=== PATIENT | male | born 1995 | race Hispanic/Latino ===

== ENCOUNTER 2017-08-18 12:36 | Emergency (ER) | payer OTHER, SELFPAY ==
--- NOTE | 2017-08-18 15:31 | ER ---
Nurse's Notes [facility] Name: Hayes Tellez Age: 22 yrs Sex: Male : 1995 Arrival Date: 08/18/2017 Time: 12:48 Bed 9 Private MD: Diagnosis: Cellulitis of right lower limb Presentation: 08/18 12:49 Presenting complaint: Patient states: "I hurt my leg Ramirze at work on a metal frame, I aa5 was just walking and didn't see it". Pt c/o pain to right crespo, red bruising noted to right crespo. Transition of care: patient was not received from another setting of care. Onset of symptoms was August 15, 2017. Risk Assessment: Do you want to hurt yourself or someone else? Patient reports no desire to harm self or others. Initial Sepsis Screen: Does the patient meet any 2 criteria? No. Patient's initial sepsis screen is negative. Does the patient have a suspected source of infection? No. Patient's initial sepsis screen is negative. Care prior to arrival: None. 12:49 Method Of Arrival: Ambulatory aa5 12:49 Acuity: PATTI 4 aa5 Historical: - Allergies: 12:51 No Known Allergies; aa5 - PMHx: 12:51 None; aa5 - PSHx: 12:51 abd sx as a child; aa5 - Immunization history:: Adult Immunizations up to date. - Social history:: Smoking status: Patient/guardian denies using tobacco. - Ebola Screening: : No symptoms or risks identified at this time. Screenin:25 Abuse screen: Denies threats or abuse. Denies injuries from another. Nutritional aj1 screening: No deficits noted. Tuberculosis screening: No symptoms or risk factors identified. Fall Risk None identified. Assessment: 15:25 General: Appears in no apparent distress. comfortable, Behavior is calm, cooperative, aj1 appropriate for age. Pain: Denies pain. Neuro: Level of Consciousness is awake, alert, obeys commands. Cardiovascular: Patient's skin is warm and dry. Respiratory: Airway is patent Respiratory effort is even, unlabored, Respiratory pattern is regular, symmetrical. GI: No signs and/or symptoms were reported involving the gastrointestinal system. : No signs and/or symptoms were reported regarding the genitourinary system. EENT: No signs and/or symptoms were reported regarding the EENT system. Derm: Bruising that is on right crespo. Musculoskeletal: Circulation, motion, and sensation intact. Range of motion: intact in all extremities, Swelling present in right crespo. 16:38 Reassessment: Patient appears in no apparent distress at this time. No changes from aj1 previously documented assessment. Patient and/or family updated on plan of care and expected duration. Pain level reassessed. Patient is alert, oriented x 3, equal unlabored respirations, skin warm/dry/pink. Vital Signs: 12:51 BP 129 / 80; Pulse 76; Resp 18 S; Temp 97.5(TE); Pulse Ox 97% on R/A; Weight 131.54 kg aa5 (R); Height 6 ft. 2 in. (187.96 cm) (R); Pain 0/10; 12:51 Body Mass Index 37.23 (131.54 kg, 187.96 cm) aa5 ED Course: 12:48 Patient arrived in ED. aa5 12:50 Triage completed. aa5 12:50 Arm band placed on. aa5 13:55 Alyssa Kennedy F[facility]-C [facility]. snw 13:55 Srinivas Tyler MD is Attending Physician. snw 14:44 Charlene Small, RN is Primary Nurse. iw 15:25 Patient has correct armband on for positive identification. Call light in reach. aj1 15:25 No provider procedures requiring assistance completed. Patient did not have IV access aj1 during this emergency room visit. Administered Medications: 15:53 Drug: Tetanus-Diphtheria Toxoid Adult 0.5 ml {Director Of Broadcast: InHiro. Exp: aj1 10/17/2019. Lot #: [id number]. } Route: IM; Site: right deltoid; 16:38 Follow up: Response: No adverse reaction aj1 Outcome: 15:30 Discharge ordered by . snw 16:39 Discharged to home ambulatory. aj1 16:39 Condition: good 16:39 Discharge instructions given to patient, Instructed on discharge instructions, follow up and referral plans. medication usage, Demonstrated understanding of instructions, follow-up care, medications, Prescriptions given X 3. 16:39 Patient left the ED. aj1 Signatures: Gina Spears RN RN aj Alyssa Kennedy FNP-C WASTE WATER OPERATOR-CsnCharlene Saldana, RN RN iw Lucrecia Rosenthal, RN RN aa5
--- NOTE | 2017-08-18 15:31 | EDPHYS ---
Physician Documentation [facility] Name: Hayes Tellez Age: 22 yrs Sex: Male : 1995 Arrival Date: 08/18/2017 Time: 12:48 Bed 9 Private MD: ED Physician Srinivas Tyler HPI: 08/18 15:40 This 22 yrs old Male presents to ER via Ambulatory with complaints of Leg Pain.snw 15:40 The patient presents with an abrasion, a contusion, an injury, swelling, tenderness. snw The complaints affect the right crespo. Context: The problem was sustained at work, resulted from a direct blow, by industrial equipment, the patient is able to ambulate, Problem is a result from a previous injury: No. Onset: The symptoms/episode began/occurred suddenly, yesterday. Associated signs and symptoms: Pertinent positives: swelling. Severity of symptoms: At their worst the symptoms were moderate. The patient has not experienced similar symptoms in the past. Historical: - Allergies: 12:51 No Known Allergies; aa5 - PMHx: 12:51 None; aa5 - PSHx: 12:51 abd sx as a child; aa5 - Immunization history:: Adult Immunizations up to date. - Social history:: Smoking status: Patient/guardian denies using tobacco. - Ebola Screening: : No symptoms or risks identified at this time. ROS: 15:34 Constitutional: Negative for fever, chills, and weight loss, Eyes: Negative for injury, snw pain, redness, and discharge, ENT: Negative for injury, pain, and discharge, Neck: Negative for injury, pain, and swelling, Cardiovascular: Negative for chest pain, palpitations, and edema, Respiratory: Negative for shortness of breath, cough, wheezing, and pleuritic chest pain, Abdomen/GI: Negative for abdominal pain, nausea, vomiting, diarrhea, and constipation, Back: Negative for injury and pain, : Negative for injury, bleeding, discharge, and swelling, Skin: Positive for injury, rash, and discoloration, to right lower leg Neuro: Negative for headache, weakness, numbness, tingling, and seizure. 15:34 MS/extremity: Positive for injury or acute deformity, contusion, ecchymosis, pain, tenderness. Exam: 15:33 Constitutional: This is a well developed, well nourished patient who is awake, alert, snw and in no acute distress. Head/Face: Normocephalic, atraumatic. Eyes: Pupils equal round and reactive to light, extra-ocular motions intact. Lids and lashes normal. Conjunctiva and sclera are non-icteric and not injected. Cornea within normal limits. Periorbital areas with no swelling, redness, or edema. ENT: Nares patent. No nasal discharge, no septal abnormalities noted. Tympanic membranes are normal and external auditory canals are clear. Oropharynx with no redness, swelling, or masses, exudates, or evidence of obstruction, uvula midline. Mucous membranes moist. Neck: Trachea midline, no thyromegaly or masses palpated, and no cervical lymphadenopathy. Supple, full range of motion without nuchal rigidity, or vertebral point tenderness. No Meningismus. Chest/axilla: Normal chest wall appearance and motion. Nontender with no deformity. No lesions are appreciated. Cardiovascular: Regular rate and rhythm with a normal S1 and S2. No gallops, murmurs, or rubs. Normal PMI, no JVD. No pulse deficits. Respiratory: Lungs have equal breath sounds bilaterally, clear to auscultation and percussion. No rales, rhonchi or wheezes noted. No increased work of breathing, no retractions or nasal flaring. Abdomen/GI: Soft, non-tender, with normal bowel sounds. No distension or tympany. No guarding or rebound. No evidence of tenderness throughout. Back: No spinal tenderness. No costovertebral tenderness. Full range of motion. Neuro: Awake and alert, GCS 15, oriented to person, place, time, and situation. Cranial nerves II-XII grossly intact. Motor strength 5/5 in all extremities. Sensory grossly intact. Cerebellar exam normal. Normal gait. Psych: Awake, alert, with orientation to person, place and time. Behavior, mood, and affect are within normal limits. 15:33 Musculoskeletal/extremity: ROM: intact in all extremities, Circulation is intact in all extremities. Sensation intact. ecchymosis to right crespo, edema. Vital Signs: 12:51 BP 129 / 80; Pulse 76; Resp 18 S; Temp 97.5(TE); Pulse Ox 97% on R/A; Weight 131.54 kg aa5 (R); Height 6 ft. 2 in. (187.96 cm) (R); Pain 0/10; 12:51 Body Mass Index 37.23 (131.54 kg, 187.96 cm) aa5 MDM: 14:47 Patient medically screened. [facility] 15:36 Data reviewed: vital signs, nurses notes. Data interpreted: Pulse oximetry: on room air snw is 97 %. Interpretation: normal. Counseling: I had a detailed discussion with the patient and/or guardian regarding: the historical points, exam findings, and any diagnostic results supporting the discharge/admit diagnosis, the presence of at least one elevated blood pressure reading (>120/80) during this emergency department visit, the need for outpatient follow up, to return to the emergency department if symptoms worsen or persist or if there are any questions or concerns that arise at home. Special discussion: I have referred the patient to see his PCP for further evaluation of high blood pressure. I discussed in detail with the patient the higher chance of wound infection based on his presenting history. Based on the history and exam findings, there is no indication for further emergent testing or inpatient evaluation. I discussed with the patient/guardian the need to see the primary care provider for further evaluation of the symptoms. 15:37 Refusal of service: The patient/guardian displays adequate decision making capability snw and despite a detailed discussion of alternatives, benefits, risks, and consequences refuses: all X-rays. Administered Medications: 15:53 Drug: Tetanus-Diphtheria Toxoid Adult 0.5 ml {Delivery Representative: KAYAK. Exp: aj1 10/17/2019. Lot #: [id number]. } Route: IM; Site: right deltoid; 16:38 Follow up: Response: No adverse reaction aj1 Disposition: 08/19 08:15 Co-signature as Attending Physician, Srinivas Tyler MD I agree with the assessment and [facility] plan of care. Disposition: 08/18/17 15:30 Discharged to Home. Impression: Cellulitis of right lower limb. - Condition is Stable. - Discharge Instructions: Cellulitis, Hypertension, VIS, Tetanus, Diphtheria (Td) - CDC, Heat Therapy. - Prescriptions for Keflex 500 mg Oral Capsule - take 1 capsule by ORAL route every 8 hours for 10 days; 30 capsule. Tylenol- Codeine #3 300-30 mg Oral Tablet - take 2 tablet by ORAL route every 6 hours As needed; 6 tablet. Bactrim DS 800- 160 mg Oral Tablet - take 1 tablet by ORAL route every 12 hours for 10 days; 20 tablet. - Work release form, Medication Reconciliation Form, Thank You Letter, Antibiotic Education, Prescription Opioid Use form. - Follow up: Private Physician; When: 1 - 2 days; Reason: Recheck today's complaints, Continuance of care, Re-evaluation by your physician. Follow up: Emergency Department; When: As needed; Reason: Worsening of condition. Signatures: Gina Spears RN RN aj1 Srinivas Tyler MD MD cha Therrien, Shelly, FOOD AND BEVERAGE ASSOCIATE-C FOOD AND BEVERAGE ASSOCIATE-Csnw Lucrecia Rosenthal RN RN aa5 Corrections: (The following items were deleted from the chart) 08/18 16:39 15:30 08/18/2017 15:30 Discharged to Home. Impression: Cellulitis of right lower limb. aj1 Condition is Stable. Forms are Medication Reconciliation Form, Thank You Letter, Antibiotic Education, Prescription Opioid Use. Follow up: Private Physician; When: 1 - 2 days; Reason: Recheck today's complaints, Continuance of care, Re-evaluation by your physician. Follow up: Emergency Department; When: As needed; Reason: Worsening of condition. snw
[2017-08-18] MEDS ORDERED: TETANUS & DIPHTHERIA TOX,ADULT 0.5 ML VIAL ONE (15:56)
[2017-08-18 16:52] VITALS: BP 129/80; TEMP 97.5; O2SAT 97
== END 2017-08-18 16:39 | disposition home or self-care (01) ==
LOC: ER 12:36
DX: L03.115 Cellulitis of right lower limb (principal); Z23 Encounter for immunization
CPT/HCPCS: 90714; 99283

== ENCOUNTER 2018-03-29 03:31 | Emergency (ER) | payer SELFPAY ==
--- OUTSIDE RECORDS SUMMARY | 2018-03-29 03:33 | XMS REPORT ---
:1995 Author Organization [facility] Address [address] [place] [address] Dr. Gonzalez [address] [place] [id number] Care Team Providers Name Role Phone Unavailable Unavailable Unavailable Problems This patient has no known problems. Allergies, Adverse Reactions, Alerts This patient has no known allergies or adverse reactions. Medications This patient has no known medications. Encounters Start End Encounter Admission Attending Care Care Encounter Date/Time Date/Time Type Type Clinicians Facility Department ID 2017-04-15 2017-04-16 [facility] [id number] 00:00:00 00:00:00
[2018-03-29] MEDS ORDERED: LIDOCAINE 2% MPF 5 ML VIAL ONE (03:49)
[2018-03-29] MEDS ORDERED: NA CHLORIDE 0.9% 1,000 ML ONE ×2 (03:57→04:50)
[2018-03-29 04:08] LABS: Absolute Lymphocytes (CBC) 3.3 K/uL (0.7-4.9); Absolute Monocytes 0.8 K/uL (0.1-1.3); Absolute Neutrophil 5.2 K/uL (1.8-8.0); Basophils % 1.2 % (0-1.3); Eosinophils % 2.6 % (0-4.4); MPV 9.6 fL (7.6-11.3); Monocytes % 8.1 % (3.3-12.3)
[2018-03-29] MEDS ORDERED: CEFAZOLIN 2GM (PREMIX IV) 2 GM/50 ML BAG ONE (04:14)
[2018-03-29 04:22] LABS: BUN Blood Urea Nitrogen 7 mg/dL (7-18); Bicarbonate 25 mmol/L (21-32); Glucose Level 136 mg/dL (74-106); Potassium 3.5 mmol/L (3.5-5.1); Sodium Level 140 mmol/L (136-145)
[2018-03-29] MEDS ORDERED: MORPHINE 4 MG/ML SYR ONE (04:22)
[2018-03-29] MEDS ORDERED: ONDANSETRON 4 MG/2 ML VIAL ONE (04:22)
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
[2018-03-29 07:12] VITALS: TEMP 97.3; O2SAT 97
[2018-03-29 07:16] VITALS: BP 108/76
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
== END 2018-03-29 07:07 | disposition short-term general hospital (02) ==
LOC: ER 03:31
PROC: 0JQ10ZZ Repair Face Subcutaneous Tissue and Fascia, Open Approach (ICD-10-PCS; principal; 2018-03-29)
PROC: 0CQ1XZZ Repair Lower Lip, External Approach (ICD-10-PCS; 2018-03-29)
DX: S01.511A Laceration without foreign body of lip, initial encounter (principal); S01.111A Laceration without foreign body of right eyelid and periocular area, initial encounter; S01.81XA Laceration without foreign body of other part of head, initial encounter; Y04.2XXA Assault by strike against or bumped into by another person, initial encounter; Y93.89 Activity, other specified; Y92.9 Unspecified place or not applicable; Z72.0 Tobacco use
CPT/HCPCS: 36415; 70450; 70486; 76377; 80048; 85025; 86850; 86900; 86901; 96361; 96365; 96375; 99285; J0690; J2405; J7030

== ENCOUNTER 2018-04-12 16:08 | Emergency (ER) | payer SELFPAY ==
--- OUTSIDE RECORDS SUMMARY | 2018-04-12 16:10 | XMS REPORT ---
:1995 [facility] Address [address] [place] [address] Dr. Gonzalez [address] [place] [id number] Care Team Providers Name Role Phone Unavailable Unavailable Unavailable Problems This patient has no known problems. Allergies, Adverse Reactions, Alerts This patient has no known allergies or adverse reactions. Medications This patient has no known medications. Encounters Start End Encounter Admission Attending Care Care Encounter Date/Time Date/Time Type Type Clinicians Facility Department ID 2017-04-15 2017-04-16 [facility] [id number] 00:00:00 00:00:00
--- NOTE | 2018-04-12 16:43 | ER ---
Nurse's Notes [facility] Name: Hayes Tellez Age: 23 yrs Sex: Male : 1995 Arrival Date: 04/12/2018 Time: 16:10 Bed 23 Private MD: Diagnosis: Encounter for removal of sutures Presentation: 04/12 16:16 Presenting complaint: Patient states: I got stitches 1.5 weeks ago and I need them out. la1 Transition of care: patient was not received from another setting of care. Onset of symptoms was April 12, 2018. Risk Assessment: Do you want to hurt yourself or someone else? Patient reports no desire to harm self or others. Initial Sepsis Screen: Does the patient meet any 2 criteria? No. Patient's initial sepsis screen is negative. Does the patient have a suspected source of infection? No. Patient's initial sepsis screen is negative. Care prior to arrival: None. 16:16 Method Of Arrival: Ambulatory la1 16:16 Acuity: PATTI 5 la1 Historical: - Allergies: 16:17 No Known Allergies; la1 - PMHx: 16:17 None; la1 - Immunization history:: Adult Immunizations up to date. - Social history:: Smoking status: Patient/guardian denies using tobacco. - Ebola Screening: : No symptoms or risks identified at this time. Screenin:20 Abuse screen: Denies threats or abuse. Denies injuries from another. Nutritional aj1 screening: No deficits noted. Tuberculosis screening: No symptoms or risk factors identified. Fall Risk None identified. Assessment: 16:20 General: Appears in no apparent distress. comfortable, Behavior is calm, cooperative, aj1 appropriate for age. Pain: Denies pain. Neuro: Level of Consciousness is awake, alert, obeys commands. Cardiovascular: Patient's skin is warm and dry. Respiratory: Airway is patent Respiratory effort is even, unlabored, Respiratory pattern is regular, symmetrical. GI: No signs and/or symptoms were reported involving the gastrointestinal system. : No signs and/or symptoms were reported regarding the genitourinary system. EENT: No signs and/or symptoms were reported regarding the EENT system. Derm: Skin is pink, warm \T\ dry. normal. Musculoskeletal: Circulation, motion, and sensation intact. Vital Signs: 16:17 BP 140 / 83; Pulse 77; Resp 18; Temp 97.1; Pulse Ox 98% on R/A; la1 ED Course: 16:10 Patient arrived in ED. as 16:11 Yessy Mcdonald FNP-C is [facility]. kb 16:11 Javan Hunter MD is Attending Physician. kb 16:16 Triage completed. la1 16:17 Arm band placed on right wrist. la1 16:18 Gina Spears, RN is Primary Nurse. aj1 16:20 Patient has correct armband on for positive identification. Bed in low position. Call aj1 light in reach. 16:20 No provider procedures requiring assistance completed. Patient did not have IV access aj1 during this emergency room visit. Administered Medications: No medications were administered Outcome: 16:43 Discharge ordered by . kb 16:52 Discharged to home ambulatory. aj1 16:52 Condition: good 16:52 Discharge instructions given to no one, patient left prior to receiving discharge papers 16:52 Patient left the ED. aj1 Signatures: Yessy Mcdonald FNP-C MANAGER OF MANUFACTURING-Ckb Gina Spears, RN RN aj1 Katya Aguilar Lee, RN RN la1
--- NOTE | 2018-04-12 16:43 | EDPHYS ---
Physician Documentation [facility] Name: Hayes Tellez Age: 23 yrs Sex: Male : 1995 Arrival Date: 04/12/2018 Time: 16:10 Bed 23 Private MD: ED Physician Javan Hunter HPI: 04/12 16:41 This 23 yrs old Male presents to ER via Ambulatory with complaints of Suture kb Removal. 16:41 The patient has sutures on the lower lip and chin. Previous treatment: The patient was kb initially treated 14 day(s) ago, the care was rendered at [facility], Treatment type: The patient's original treatment included sutures. Sutures/venessa progress: The patient has no c/o's. The wound is well-healing with no redness, swelling, discharge, or dehiscence reported. The patient has not experienced similar symptoms in the past. The patient has been recently seen at the [facility] Emergency Department, a couple of weeks ago. Historical: - Allergies: 16:17 No Known Allergies; la1 - PMHx: 16:17 None; la1 - Immunization history:: Adult Immunizations up to date. - Social history:: Smoking status: Patient/guardian denies using tobacco. - Ebola Screening: : No symptoms or risks identified at this time. ROS: 16:39 Constitutional: Negative for fever, chills, and weight loss, Cardiovascular: Negative kb for chest pain, palpitations, and edema, Respiratory: Negative for shortness of breath, cough, wheezing, and pleuritic chest pain, Abdomen/GI: Negative for abdominal pain, nausea, vomiting, diarrhea, and constipation, Back: Negative for injury and pain, MS/Extremity: Negative for injury and deformity, Neuro: Negative for headache, weakness, numbness, tingling, and seizure. 16:39 Skin: Positive for of the lower lip and chin, sutures in place. Exam: 16:39 Constitutional: This is a well developed, well nourished patient who is awake, alert, kb and in no acute distress. Head/Face: Normocephalic, atraumatic. Chest/axilla: Normal chest wall appearance and motion. Nontender with no deformity. No lesions are appreciated. Cardiovascular: Regular rate and rhythm with a normal S1 and S2. No gallops, murmurs, or rubs. Normal PMI, no JVD. No pulse deficits. Respiratory: Lungs have equal breath sounds bilaterally, clear to auscultation and percussion. No rales, rhonchi or wheezes noted. No increased work of breathing, no retractions or nasal flaring. Abdomen/GI: Soft, non-tender, with normal bowel sounds. No distension or tympany. No guarding or rebound. No evidence of tenderness throughout. Back: No spinal tenderness. No costovertebral tenderness. Full range of motion. MS/ Extremity: Pulses equal, no cyanosis. Neurovascular intact. Full, normal range of motion. Neuro: Awake and alert, GCS 15, oriented to person, place, time, and situation. Cranial nerves II-XII grossly intact. Motor strength 5/5 in all extremities. Sensory grossly intact. Cerebellar exam normal. Normal gait. 16:39 Skin: Wound recheck: Suture laceration closure: the wound is healing well, the edges are well approximated, no evidence of dehiscence, no drainage, no erythema, no swelling. Vital Signs: 16:17 BP 140 / 83; Pulse 77; Resp 18; Temp 97.1; Pulse Ox 98% on R/A; la1 Procedures: 16:40 Suture/Staple removal: Removed 26 sutures, from lower lip and chin, site appears well kb healed, Patient tolerated well. MDM: 16:18 Patient medically screened. kb 16:38 Data reviewed: vital signs, nurses notes. Data interpreted: Pulse oximetry: on room air kb is 98 %. Interpretation: normal. Counseling: I had a detailed discussion with the patient and/or guardian regarding: the historical points, exam findings, and any diagnostic results supporting the discharge/admit diagnosis, the need for outpatient follow up, a family practitioner, to return to the emergency department if symptoms worsen or persist or if there are any questions or concerns that arise at home. Administered Medications: No medications were administered Disposition: 17:44 Co-signature as Attending Physician, Javan Hunter MD. rn Disposition: 04/12/18 16:43 Discharged to Home. Impression: Encounter for removal of sutures. - Condition is Stable. - Discharge Instructions: Suture Removal, Care After. - Medication Reconciliation Form, Thank You Letter, Antibiotic Education, Prescription Opioid Use form. - Follow up: Emergency Department; When: As needed; Reason: Worsening of condition. Follow up: Private Physician; When: 2 - 3 days; Reason: Recheck today's complaints, Continuance of care, Re-evaluation by your physician. Signatures: Yessy Mcdonald FNP-C FNP-Gina Epps RN RN aj1 Javan Hunter MD MD rn Attema, Lee, RN RN la1 Corrections: (The following items were deleted from the chart) 16:52 16:43 04/12/2018 16:43 Discharged to Home. Impression: Encounter for removal of aj1 sutures. Condition is Stable. Forms are Medication Reconciliation Form, Thank You Letter, Antibiotic Education, Prescription Opioid Use. Follow up: Emergency Department; When: As needed; Reason: Worsening of condition. Follow up: Private Physician; When: 2 - 3 days; Reason: Recheck today's complaints, Continuance of care, Re-evaluation by your physician. kb
[2018-04-12 17:01] VITALS: BP 140/83; TEMP 97.1; O2SAT 98
== END 2018-04-12 16:52 | disposition home or self-care (01) ==
LOC: ER 16:08
DX: Z48.02 Encounter for removal of sutures (principal)
CPT/HCPCS: 99281

== ENCOUNTER 2018-10-30 15:54 | Emergency (ER) | payer SELFPAY ==
--- OUTSIDE RECORDS SUMMARY | 2018-10-30 15:56 | XMS REPORT ---
:1995 [facility] Address [address] [place] [address] Dr. Gonzalez [address] [place] [id number] Care Team Providers Name Role Phone Unavailable Unavailable Unavailable Problems This patient has no known problems. Allergies, Adverse Reactions, Alerts This patient has no known allergies or adverse reactions. Medications This patient has no known medications. Encounters Start End Encounter Admission Attending Care Care Encounter Date/Time Date/Time Type Type Clinicians Facility Department ID 2017-04-15 2017-04-16 [facility] [id number] 00:00:00 00:00:00
[2018-10-30] MEDS ORDERED: IBUPROFEN 400 MG TAB ONE (16:25)
[2018-10-30] MEDS ORDERED: MAGNE/ALUM HYDROXD 30 ML UCUP ONE (16:25)
[2018-10-30] MEDS ORDERED: dexAMETHasone 10 MG/ML VIAL ONE (16:25)
[2018-10-30] MEDS ORDERED: LIDOCAINE VISCOUS 2% SOLN 15 ML UDC ONE (16:25)
[2018-10-30] MEDS ORDERED: NA CHLORIDE 0.9% 1,000 ML ONE (16:25)
--- NOTE | 2018-10-30 17:26 | ER ---
Nurse's Notes [facility] Name: Hayes Tellez Age: 23 yrs Sex: Male : 1995 Arrival Date: 10/30/2018 Time: 15:55 Bed 15 Private MD: Diagnosis: Acute tonsillitis Presentation: 10/30 15:59 Presenting complaint: Patient states: Sore throat since Friday, Looked in the mirror la1 and saw a bunch of white stuff. Transition of care: patient was not received from another setting of care. Onset of symptoms was October 30, 2018. Risk Assessment: Do you want to hurt yourself or someone else? Patient reports no desire to harm self or others. Initial Sepsis Screen: Does the patient meet any 2 criteria? Temp <36.0*C (96.8*F)) or > 38.3*C (100.9*F). HR > 90 bpm. Yes Does the patient have a suspected source of infection? Yes: Other: Throat If YES to both, name of provider notified: Javan Hunter MD. Care prior to arrival: None. 15:59 Method Of Arrival: Ambulatory la1 15:59 Acuity: PATTI 3 la1 Historical: - Allergies: 15:59 No Known Allergies; la1 - PMHx: 15:59 None; la1 - PSHx: 15:59 eye sx; la1 - Immunization history:: Adult Immunizations up to date. - Social history:: Smoking status: Patient/guardian denies using tobacco. - Ebola Screening: : No symptoms or risks identified at this time. Screenin:05 Abuse screen: Denies threats or abuse. Denies injuries from another. Nutritional rv screening: No deficits noted. Tuberculosis screening: No symptoms or risk factors identified. Fall Risk None identified. Assessment: 16:30 General: Appears in no apparent distress. comfortable, Behavior is calm, cooperative. rv 16:30 Pain: Complains of pain in throat. Neuro: Level of Consciousness is awake, alert, obeys rv commands, Oriented to person, place, time, situation. Cardiovascular: Patient's skin is warm and dry. Respiratory: Airway is patent Respiratory effort is even, Breath sounds are clear bilaterally. GI: No signs and/or symptoms were reported involving the gastrointestinal system. GI: No signs and/or symptoms were reported involving the gastrointestinal system. : No signs and/or symptoms were reported regarding the genitourinary system. EENT: Throat is reddened has patchy exudate has enlarged tonsils bilaterally. Derm: Skin is intact. Musculoskeletal: No signs and/or symptoms reported regarding the musculoskeletal system. Vital Signs: 15:58 BP 147 / 102; Pulse 133; Resp 16; Temp 101.9; Pulse Ox 100% on R/A; Weight 133.81 kg; la1 17:05 BP 126 / 74; Pulse 106; Resp 16; Pulse Ox 96% on R/A; rv 18:11 BP 128 / 76; Pulse 95; Resp 15; Temp 99.5; Pulse Ox 100% on R/A; rv ED Course: 15:55 Patient arrived in ED. as 15:58 Arm band placed on left wrist. la1 16:00 Triage completed. la1 16:01 Yessy Mcdonald FNP-C [facility]. kb 16:01 Javan Hunter MD is Attending Physician. kb 16:27 Portillo Prutit RN is Primary Nurse. rv 16:46 Inserted saline lock: 20 gauge in left antecubital area, using aseptic technique. rv Missed attempt(s): 20 gauge in right forearm. 17:05 Patient has correct armband on for positive identification. Bed in low position. Call rv light in reach. Side rails up X 1. Pulse ox on. NIBP on. 18:11 No provider procedures requiring assistance completed. IV discontinued, intact, rv bleeding controlled, No redness/swelling at site. Pressure dressing applied. Administered Medications: 16:15 Drug: Ibuprofen 800 mg Route: PO; rv 18:10 Follow up: Response: No adverse reaction rv 16:15 Drug: GI Cocktail without - (Maalox Suspension 30 ml, Lidocaine Liquid 2 % 15 rv ml) Route: PO; 18:10 Follow up: Response: No adverse reaction rv 16:46 Drug: NS 0.9% 1000 ml Route: IV; Rate: 1000 ml; Site: left antecubital; rv 18:10 Follow up: IV Status: Completed infusion; IV Intake: 1000ml rv 16:46 Drug: Decadron - Dexamethasone 10 mg Route: IVP; Site: left antecubital; rv 18:10 Follow up: Response: No adverse reaction rv 17:40 Drug: Augmentin 875 mg Route: PO; rv 18:10 Follow up: Response: Medication administered at discharge. rv Intake: 18:10 IV: 1000ml; Total: 1000ml. rv Outcome: 17:26 Discharge ordered by . khushbu 18:11 Discharged to home ambulatory. rv 18:11 Condition: improved 18:11 Discharge instructions given to patient, Instructed on discharge instructions, follow up and referral plans. medication usage, Demonstrated understanding of instructions, follow-up care, medications, Prescriptions given X 1. 18:12 Patient left the ED. rv Signatures: Yessy Mcdonald, CUSTOMER SPECIALIST-C CUSTOMER SPECIALIST-Katya Real Lee, RN RN la1 Portillo Pruitt, RN RN rv
--- NOTE | 2018-10-30 17:26 | EDPHYS ---
Physician Documentation [facility] Name: Hayes Tellez Age: 23 yrs Sex: Male : 1995 Arrival Date: 10/30/2018 Time: 15:55 Bed 15 Private MD: ED Physician Javan Hunter HPI: 10/30 17:23 This 23 yrs old Male presents to ER via Ambulatory with complaints of Sore kb Throat. 17:23 The patient presents with sore throat. The patient describes throat pain as constant. kb Onset: The symptoms/episode began/occurred 3 day(s) ago. Severity of symptoms: At their worst the symptoms were moderate, in the emergency department the symptoms are unchanged. Modifying factors: The symptoms are alleviated by nothing, the symptoms are aggravated by swallowing, Patient's oral intake status: limited fluid intake, limited food intake. Associated signs and symptoms: Pertinent positives: fever, Sore throat. The patient has not experienced similar symptoms in the past. The patient has not recently seen a physician. Historical: - Allergies: 15:59 No Known Allergies; la1 - PMHx: 15:59 None; la1 - PSHx: 15:59 eye sx; la1 - Immunization history:: Adult Immunizations up to date. - Social history:: Smoking status: Patient/guardian denies using tobacco. - Ebola Screening: : No symptoms or risks identified at this time. ROS: 17:23 Neck: Negative for injury, pain, and swelling, Cardiovascular: Negative for chest pain, kb palpitations, and edema, Respiratory: Negative for shortness of breath, cough, wheezing, and pleuritic chest pain, Abdomen/GI: Negative for abdominal pain, nausea, vomiting, diarrhea, and constipation, Back: Negative for injury and pain, MS/Extremity: Negative for injury and deformity, Skin: Negative for injury, rash, and discoloration, Neuro: Negative for headache, weakness, numbness, tingling, and seizure. 17:23 Constitutional: Positive for chills, fatigue, fever, malaise, poor PO intake, Negative for body aches, weight loss. 17:23 ENT: Positive for sore throat. Exam: 17:24 Constitutional: This is a well developed, well nourished patient who is awake, alert, kb and in no acute distress. Head/Face: Normocephalic, atraumatic. Neck: Trachea midline, no thyromegaly or masses palpated, and no cervical lymphadenopathy. Supple, full range of motion without nuchal rigidity, or vertebral point tenderness. No Meningismus. Chest/axilla: Normal chest wall appearance and motion. Nontender with no deformity. No lesions are appreciated. Cardiovascular: Regular rate and rhythm with a normal S1 and S2. No gallops, murmurs, or rubs. Normal PMI, no JVD. No pulse deficits. Respiratory: Lungs have equal breath sounds bilaterally, clear to auscultation and percussion. No rales, rhonchi or wheezes noted. No increased work of breathing, no retractions or nasal flaring. Abdomen/GI: Soft, non-tender, with normal bowel sounds. No distension or tympany. No guarding or rebound. No evidence of tenderness throughout. Skin: Warm, dry with normal turgor. Normal color with no rashes, no lesions, and no evidence of cellulitis. MS/ Extremity: Pulses equal, no cyanosis. Neurovascular intact. Full, normal range of motion. Neuro: Awake and alert, GCS 15, oriented to person, place, time, and situation. Cranial nerves II-XII grossly intact. Motor strength 5/5 in all extremities. Sensory grossly intact. Cerebellar exam normal. Normal gait. 17:24 ENT: Posterior pharynx: Airway: normal, no evidence of obstruction, Tonsils: bilaterally enlarged, with erythema, with exudate, Uvula: normal, midline, swelling, that is moderate, erythema, that is moderate, exudate, that is moderate. Vital Signs: 15:58 BP 147 / 102; Pulse 133; Resp 16; Temp 101.9; Pulse Ox 100% on R/A; Weight 133.81 kg; la1 17:05 BP 126 / 74; Pulse 106; Resp 16; Pulse Ox 96% on R/A; rv 18:11 BP 128 / 76; Pulse 95; Resp 15; Temp 99.5; Pulse Ox 100% on R/A; rv MDM: 16:01 Patient medically screened. kb 17:17 Data reviewed: vital signs, nurses notes. Data interpreted: Pulse oximetry: on room air kb is 96 %. Interpretation: normal. Counseling: I had a detailed discussion with the patient and/or guardian regarding: the historical points, exam findings, and any diagnostic results supporting the discharge/admit diagnosis, lab results, the need for outpatient follow up, a family practitioner. 10/30 16:05 Order name: Strep; Complete Time: 16:45 kb 10/30 16:45 Order name: Noble Screen Profile; Complete Time: 17:25 kb 10/30 16:46 Order name: Throat Culture EDAZ 10/30 16:05 Order name: IV Start; Complete Time: 16:57 kb Administered Medications: 16:15 Drug: Ibuprofen 800 mg Route: PO; rv 18:10 Follow up: Response: No adverse reaction rv 16:15 Drug: GI Cocktail without - (Maalox Suspension 30 ml, Lidocaine Liquid 2 % 15 rv ml) Route: PO; 18:10 Follow up: Response: No adverse reaction rv 16:46 Drug: NS 0.9% 1000 ml Route: IV; Rate: 1000 ml; Site: left antecubital; rv 18:10 Follow up: IV Status: Completed infusion; IV Intake: 1000ml rv 16:46 Drug: Decadron - Dexamethasone 10 mg Route: IVP; Site: left antecubital; rv 18:10 Follow up: Response: No adverse reaction rv 17:40 Drug: Augmentin 875 mg Route: PO; rv 18:10 Follow up: Response: Medication administered at discharge. rv Disposition: 18:14 Co-signature as Attending Physician, Javan Hunter MD. rn Disposition: 10/30/18 17:26 Discharged to Home. Impression: Acute tonsillitis. - Condition is Stable. - Discharge Instructions: Tonsillitis, [id number]. - Prescriptions for Augmentin 875- 125 mg Oral Tablet - take 1 tablet by ORAL route every 12 hours for 10 days; 20 tablet. - Medication Reconciliation Form, Thank You Letter, Antibiotic Education, Prescription Opioid Use form. - Follow up: Emergency Department; When: As needed; Reason: Worsening of condition. Follow up: Private Physician; When: 2 - 3 days; Reason: Recheck today's complaints, Continuance of care, Re-evaluation by your physician. Signatures: Dispatcher [employer] EDAZ Yessy Mcdonald, CERTIFIED DRIVER EXAMINER-C CERTIFIED DRIVER EXAMINER-Javan Heredia MD MD rn Attema, Lee RN RN oPrtillo Almeida RN RN rv Corrections: (The following items were deleted from the chart) 18:12 17:26 10/30/2018 17:26 Discharged to Home. Impression: Acute tonsillitis. Condition is rv Stable. Forms are Medication Reconciliation Form, Thank You Letter, Antibiotic Education, Prescription Opioid Use. Follow up: Emergency Department; When: As needed; Reason: Worsening of condition. Follow up: Private Physician; When: 2 - 3 days; Reason: Recheck today's complaints, Continuance of care, Re-evaluation by your physician. kb
[2018-10-30] MEDS ORDERED: AMOX/K CLAV 875 MG TAB ONE (17:34)
[2018-10-30 18:25] VITALS: BP 128/76; TEMP 99.5; O2SAT 100
== END 2018-10-30 18:12 | disposition home or self-care (01) ==
LOC: ER 15:54
DX: J03.90 Acute tonsillitis, unspecified (principal)
CPT/HCPCS: 36415; 86308; 87070; 87081; 96361; 96374; 99284; J1100; J7030

== ENCOUNTER 2018-11-01 01:02 | Emergency (ER) | payer SELFPAY ==
--- OUTSIDE RECORDS SUMMARY | 2018-11-01 01:05 | XMS REPORT ---
:1995 [facility] Address [address] [place] [address] Dr. Gonzalez [address] [place] [id number] Care Team Providers Name Role Phone Unavailable Unavailable Unavailable Problems This patient has no known problems. Allergies, Adverse Reactions, Alerts This patient has no known allergies or adverse reactions. Medications This patient has no known medications. Encounters Start End Encounter Admission Attending Care Care Encounter Date/Time Date/Time Type Type Clinicians Facility Department ID 2017-04-15 2017-04-16 [facility] [id number] 00:00:00 00:00:00
--- NOTE | 2018-11-01 01:40 | ER ---
Nurse's Notes [facility] Name: Hayes Tellez Age: 23 yrs Sex: Male : 1995 Arrival Date: 11/01/2018 Time: 01:03 Bed 20 Private MD: Diagnosis: Acute tonsillitis Presentation: 11/01 01:12 Presenting complaint: Patient states: increased throat pain since 1900. pt was seen and ak1 treated on 10/30/18. pt took 400mg motrin at 0100. Transition of care: patient was not received from another setting of care. Onset of symptoms is unknown. Risk Assessment: Do you want to hurt yourself or someone else? Patient reports no desire to harm self or others. Initial Sepsis Screen: Does the patient meet any 2 criteria? No. Patient's initial sepsis screen is negative. Does the patient have a suspected source of infection? No. Patient's initial sepsis screen is negative. Care prior to arrival: None. 01:12 Acuity: PATTI 4 ak1 01:12 Method Of Arrival: Ambulatory ak1 Triage Assessment: 01:14 General: Appears in no apparent distress. Behavior is calm, cooperative. ak1 Historical: - Allergies: 01:14 No Known Allergies; ak1 - Home Meds: 01:14 None [Active]; ak1 - PMHx: 01:14 None; ak1 - PSHx: 01:14 eye sx; Appendectomy; ak1 - Immunization history:: Adult Immunizations unknown. - Social history:: Smoking status: Patient/guardian denies using tobacco. - Ebola Screening: : No symptoms or risks identified at this time. Screenin:11 Abuse screen: Denies threats or abuse. Denies injuries from another. Nutritional rr5 screening: No deficits noted. Tuberculosis screening: No symptoms or risk factors identified. Fall Risk None identified. Total Potts Fall Scale indicates No Risk (0-24 pts). Assessment: 01:11 General: Appears in no apparent distress. uncomfortable, Behavior is calm, cooperative, rr5 appropriate for age. Pain: Complains of pain in head and throat Pain does not radiate. Pain currently is 8 out of 10 on a pain scale. Quality of pain is described as aching, Pain began gradually, Is intermittent. Neuro: Level of Consciousness is awake, alert, obeys commands, Oriented to person, place, time, situation, Appropriate for age Reports headache. Cardiovascular: Capillary refill < 3 seconds Patient's skin is warm and dry. Respiratory: Airway is patent Respiratory effort is even, unlabored, Respiratory pattern is regular, symmetrical, Breath sounds are clear. GI: No signs and/or symptoms were reported involving the gastrointestinal system. : No signs and/or symptoms were reported regarding the genitourinary system. EENT: Throat is reddened has patchy exudate has enlarged tonsils on left bilaterally with gag reflex present. Derm: Skin is intact, Skin is pink, warm \T\ dry. Skin temperature is warm. Musculoskeletal: Circulation, motion, and sensation intact. Capillary refill < 3 seconds. 01:30 Reassessment: Patient appears in no apparent distress at this time. Patient is alert, rr5 oriented x 3, equal unlabored respirations, skin warm/dry/pink. discharge instruction given and explained without complaints made verbalized understanding. Vital Signs: 01:10 BP 135 / 92; Pulse 116; Resp 18; Temp 99.9(TE); Pulse Ox 96% on R/A; Weight 136.08 kg ak1 (R); Height 6 ft. 2 in. (187.96 cm) (R); Pain 8/10; 01:30 BP 122 / 85; Pulse 105; Resp 17; Pulse Ox 99% ; rr5 01:10 Body Mass Index 38.52 (136.08 kg, 187.96 cm) ak1 ED Course: 01:03 Patient arrived in ED. es 01:07 Tien Adrian, RN is Primary Nurse. rr5 01:10 Arm band placed on Patient placed in an exam room, on a stretcher, on pulse oximetry, ak1 Patient notified of wait time. 01:14 Triage completed. ak1 01:14 Patient has correct armband on for positive identification. Bed in low position. Call ak1 light in reach. Side rails up X 1. Adult w/ patient. Pulse ox on. NIBP on. 01:15 Yuval Martinez MD is Attending Physician. tw4 01:35 Patient has correct armband on for positive identification. rr5 01:35 No provider procedures requiring assistance completed. Patient did not have IV access rr5 during this emergency room visit. Administered Medications: No medications were administered Outcome: 01:20 Discharge ordered by . tw4 01:35 Discharged to home ambulatory, with family. rr5 01:35 Condition: stable 01:35 Discharge instructions given to patient, Instructed on discharge instructions, follow up and referral plans. Demonstrated understanding of instructions, follow-up care. 01:36 Patient left the ED. rr5 Signatures: Yue Houston Amber RN RN ak1 Yuval Martinez MD MD tw4 Tien Adrian RN RN rr5
--- NOTE | 2018-11-01 01:40 | EDPHYS ---
Physician Documentation [facility] Name: Hayes Tellez Age: 23 yrs Sex: Male : 1995 Arrival Date: 11/01/2018 Time: 01:03 Bed 20 Private MD: ED Physician Yuval Martinez HPI: 11/01 01:18 This 23 yrs old Male presents to ER via Ambulatory with complaints of Sore tw4 Throat, Headache. 01:18 The patient presents with sore throat. The patient describes throat pain as raw. Onset: tw4 The symptoms/episode began/occurred today. Severity of symptoms: At their worst the symptoms were moderate, in the emergency department the symptoms are unchanged. Modifying factors: The symptoms are alleviated by nothing, the symptoms are aggravated by nothing. Associated signs and symptoms: The patient has no apparent associated signs or symptoms. The patient has experienced a previous episode. The patient has been recently seen by a physician: The patient has been recently seen at the [facility] Emergency Department. Historical: - Allergies: 01:14 No Known Allergies; ak1 - Home Meds: 01:14 None [Active]; ak1 - PMHx: 01:14 None; ak1 - PSHx: 01:14 eye sx; Appendectomy; ak1 - Immunization history:: Adult Immunizations unknown. - Social history:: Smoking status: Patient/guardian denies using tobacco. - Ebola Screening: : No symptoms or risks identified at this time. ROS: 01:18 Constitutional: Negative for fever, chills, and weight loss, Eyes: Negative for injury, tw4 pain, redness, and discharge, ENT: Negative for injury, pain, and discharge, Cardiovascular: Negative for chest pain, palpitations, and edema, Respiratory: Negative for shortness of breath, cough, wheezing, and pleuritic chest pain, Abdomen/GI: Negative for abdominal pain, nausea, vomiting, diarrhea, and constipation, MS/Extremity: Negative for injury and deformity, Skin: Negative for injury, rash, and discoloration. 01:18 Constitutional: Positive for Exam: 01:18 Constitutional: This is a well developed, well nourished patient who is awake, alert, tw4 and in no acute distress. Head/Face: Normocephalic, atraumatic. Chest/axilla: Normal chest wall appearance and motion. Nontender with no deformity. No lesions are appreciated. Cardiovascular: Regular rate and rhythm with a normal S1 and S2. No gallops, murmurs, or rubs. Normal PMI, no JVD. No pulse deficits. 01:18 Respiratory: Lungs have equal breath sounds bilaterally, clear to auscultation and percussion. No rales, rhonchi or wheezes noted. No increased work of breathing, no retractions or nasal flaring. Abdomen/GI: Soft, non-tender, with normal bowel sounds. No distension or tympany. No guarding or rebound. No evidence of tenderness throughout. 01:18 ENT: Posterior pharynx: Tonsils: bilaterally enlarged, with erythema, with exudate. Vital Signs: 01:10 BP 135 / 92; Pulse 116; Resp 18; Temp 99.9(TE); Pulse Ox 96% on R/A; Weight 136.08 kg ak1 (R); Height 6 ft. 2 in. (187.96 cm) (R); Pain 8/10; 01:30 BP 122 / 85; Pulse 105; Resp 17; Pulse Ox 99% ; rr5 01:10 Body Mass Index 38.52 (136.08 kg, 187.96 cm) ak1 MDM: 01:15 Patient medically screened. tw4 01:18 Differential diagnosis: elsy's angina, mononucleosis. Data reviewed: vital signs, tw4 nurses notes. Counseling: I had a detailed discussion with the patient and/or guardian regarding: the historical points, exam findings, and any diagnostic results supporting the discharge/admit diagnosis. Administered Medications: No medications were administered Disposition: 11/01/18 01:20 Discharged to Home. Impression: Acute tonsillitis. - Condition is Stable. - Discharge Instructions: Tonsillitis. - Medication Reconciliation Form, Thank You Letter, Antibiotic Education, Prescription Opioid Use form. - Follow up: Private Physician; When: Upon discharge from the Emergency Department; Reason: If symptoms return, Recheck today's complaints, Continuance of care. - Problem is new. - Symptoms have improved. Signatures: Sophia Upton RN RN ak1 Yuval Martinez MD MD tw4 Tien Adrian RN RN rr5 Corrections: (The following items were deleted from the chart) 01:36 01:20 11/01/2018 01:20 Discharged to Home. Impression: Acute tonsillitis. Condition is rr5 Stable. Forms are Medication Reconciliation Form, Thank You Letter, Antibiotic Education, Prescription Opioid Use. Follow up: Private Physician; When: Upon discharge from the Emergency Department; Reason: If symptoms return, Recheck today's complaints, Continuance of care. Problem is new. Symptoms have improved. tw4
[2018-11-01 03:23] VITALS: TEMP 99.9
[2018-11-01 03:25] VITALS: BP 122/85; O2SAT 99
== END 2018-11-01 01:36 | disposition home or self-care (01) ==
LOC: ER 01:02
DX: J03.90 Acute tonsillitis, unspecified (principal)
CPT/HCPCS: 99283